=== PATIENT | male | born 2000 | race Caucasian/White ===

== ENCOUNTER 2023-12-23 07:59 | Emergency (ER) | payer OTHER ==
[~2023-12-23] VITALS: Ht 180.3 cm; Wt 63.7 kg
[2023-12-23] MEDS: KETOROLAC 60MG 2ML VIAL IM ONE (08:32)
[2023-12-23] MEDS: ACETAMINOPHEN TAB 650MG DOSE (2X325MG) PO ONE (08:32)
[2023-12-23 09:59] VITALS: BP 112/70; TEMP 97.8; O2SAT 100
== END 2023-12-23 10:10 | disposition home or self-care (01) ==
LOC: M ED 07:59
DX: S93.401A Sprain of unspecified ligament of right ankle, initial encounter (principal); M70.871 Other soft tissue disorders related to use, overuse and pressure, right ankle and foot; Y92.410 Unspecified street and highway as the place of occurrence of the external cause; Y93.02 Activity, running; Y99.9 Unspecified external cause status
CPT/HCPCS: 73610; 73630; 96372; 99284; J1885